=== PATIENT | female | born 1985 | race Two or more races ===

== ENCOUNTER 2019-05-12 10:40 | Outpatient (CLI) | payer OTHER | END 2019-05-12 10:53 | disposition home or self-care (01) | LOC: LAB 10:40 | DX: N61.1 Abscess of the breast and nipple (principal) ==

== ENCOUNTER → 2019-05-12 | Outpatient (CLI) | payer OTHER | END | disposition home or self-care (01) | LOC: SONOGRAMA 08:12 | DX: N61.1 Abscess of the breast and nipple (principal); N61.0 Mastitis without abscess ==

== ENCOUNTER 2021-08-22 10:05 | Outpatient (CLI) | payer OTHER | END 2021-08-22 10:36 | disposition home or self-care (01) | LOC: MAMO-SONO 10:05 | PROVIDERS: ATTEND Surgery | DX: N60.11 Diffuse cystic mastopathy of right breast (principal); N60.12 Diffuse cystic mastopathy of left breast ==